=== PATIENT | male | born 1990 | race Two or more races ===

== ENCOUNTER 2022-08-20 15:38 | Inpatient (IN) | payer MEDICAID, OTHER ==
[~2022-08-20] VITALS: Ht 180.3 cm; Wt 78.0 kg
[2022-08-20 17:09] LABS: Basophils # (auto) 0.1 10 ^3/uL (0-0.2); Basophils % (auto) 0.7 % (0.0-2.0); Eosinophils # (auto) 0 10 ^3/uL (0-0.8); Eosinophils % (auto) 0.5 % (0.0-7.0); Hematocrit 43.5 % (41.0-53.0); Lymphocytes # (auto) 0.7 10 ^3/uL (0.4-5.4); Lymphocytes % (auto) 9.6 % (10.0-50.0); Mean Corpuscular Hemoglobin 32.7 pg (28.0-32.0); Mean Corpuscular Hgb Conc. 34.4 g/dL (32.0-36.0); Mean Corpuscular Volume 95.1 fL (80.0-100.0); Monocytes # (auto) 0.9 10 ^3/uL (0-1.3); Monocytes % (auto) 11.6 % (0.0-12.0); Neutrophils # (auto) 5.9 10 ^3/uL (1.6-8.6); Neutrophils % (auto) 77.6 % (37.0-80.0); Nucleated Red Blood Cells % 0.1 %; Red Blood Cells 4.57 10^6/uL (4.5-5.90); Red Cell Distribution Width 16.7 % (11.8-14.3); White Blood Cell 7.6 10^3/uL (4.4-10.8)
[2022-08-20 17:29] LABS: Albumin 3.3 g/dL (3.4-5.0); Calcium 8.6 mg/dL (8.5-10.1); Potassium 3.7 mmol/L (3.5-5.1)
[2022-08-20 17:32] LABS: Bilirubin, Total 8.2 mg/dL (0.2-1.0); Total Protein 9.1 g/dL (6.4-8.2)
[2022-08-20] MEDS ORDERED: levoFLOXacin 250 MG TAB PO ONE (18:45)
[2022-08-20] MEDS ORDERED: SODIUM CHLORIDE 0.9% 1,000 ML IV ONE (18:45)
[2022-08-20] MEDS ORDERED: metroNIDAZOLE 500MG/100ML 100 ML IV ONE (18:45)
[2022-08-20 19:24] LABS: Urine Bacteria NONE SEEN /hpf (None Seen); Urine Blood Negative /uL (Negative); Urine Mucus FEW (None Seen); Urine Specific Gravity 1.033 (1.001-1.035); Urine WBC <1 /hpf (0 - 3)
[2022-08-20] MEDS ORDERED: ONDANSETRON HCL 4 MG/2 ML VIAL IV PRN (21:45)
[2022-08-20] MEDS ORDERED: MORPHINE SULFATE INJ 2 MG/ml SYRG IV PRN (21:45)
[2022-08-20] MEDS ORDERED: chlordiazePOXIDE HCL 25 MG CAP PO PRN (21:45)
[2022-08-20] MEDS ORDERED: TEMAZEPAM 15 MG CAP PO PRN (21:45)
[2022-08-20 22:26] LABS: INR 1.62 (0.9-1.15); Partial Thromboplastin Time 41.6 sec (24.6-33.4)
[2022-08-21 05:19] LABS: Basophils # (auto) 0 10 ^3/uL (0-0.2); Basophils % (auto) 0.9 % (0.0-2.0); Eosinophils # (auto) 0 10 ^3/uL (0-0.8); Eosinophils % (auto) 0.8 % (0.0-7.0); Hematocrit 36.3 % (41.0-53.0); Hemoglobin 12.7 g/dL (13.5-17.5); Lymphocytes % (auto) 18.3 % (10.0-50.0); Mean Corpuscular Hgb Conc. 34.9 g/dL (32.0-36.0); Mean Corpuscular Volume 94.6 fL (80.0-100.0); Monocytes # (auto) 0.7 10 ^3/uL (0-1.3); Neutrophils # (auto) 3.8 10 ^3/uL (1.6-8.6); Nucleated Red Blood Cells % 0.1 %; Red Blood Cells 3.84 10^6/uL (4.5-5.90); Red Cell Distribution Width 16.4 % (11.8-14.3); White Blood Cell 5.6 10^3/uL (4.4-10.8)
[2022-08-21 05:36] LABS: Albumin 2.8 g/dL (3.4-5.0); Calcium 8.1 mg/dL (8.5-10.1); Potassium 3.5 mmol/L (3.5-5.1)
[2022-08-21 05:41] LABS: BUN/Creatinine Ratio 17.4; Bilirubin, Total 5.5 mg/dL (0.2-1.0); Total Protein 7.6 g/dL (6.4-8.2)
[2022-08-21] MEDS: metroNIDAZOLE 500MG/100ML 100 ML IV SCH ×3 (06:06→21:44)
[2022-08-21] MEDS: cefTRIAXone 1GM/50ML D5W 50 ML IV SCH (09:12)
[2022-08-21] MEDS: LACTULOSE 20Gm/30ML SOLN PO SCH (09:12)
[2022-08-21 12:00] LABS: Alcohol, Urine < 3.0 mg/dL (0-10); Amphetamine Screen, Urine NEGATIVE (NEGATIVE); Barbiturate Scree,Urine NEGATIVE (NEGATIVE); Benzodiazephine Screen, Urine NEGATIVE (NEGATIVE); Cannabinoid Screen, Urine NEGATIVE (NEGATIVE); Cocaine Screen, Urine POSITIVE (NEGATIVE); Opiate Scree,Urine NEGATIVE (NEGATIVE); Phencyclidine Screen, Urine NEGATIVE (NEGATIVE)
[2022-08-21] MEDS: FOLIC ACID 1 MG, MULTIPLE VITAMIN 10 ML, MAGNESIUM SULF SDV 50% 8 MEQ, THIAMINE INJ 100... INJ SCH ×5 (12:16)
[2022-08-21 17:40] VITALS: BP 138/87
[2022-08-21 20:00] VITALS: BP 129/49
[2022-08-21 22:00] VITALS: BP 129/69
[2022-08-22 05:00] VITALS: BP 123/72
[2022-08-22 05:06] LABS: Basophils # (auto) 0 10 ^3/uL (0-0.2); Basophils % (auto) 0.7 % (0.0-2.0); Eosinophils # (auto) 0 10 ^3/uL (0-0.8); Eosinophils % (auto) 1.1 % (0.0-7.0); Hematocrit 35.6 % (41.0-53.0); Hemoglobin 12.5 g/dL (13.5-17.5); Lymphocytes # (auto) 1.1 10 ^3/uL (0.4-5.4); Lymphocytes % (auto) 24.2 % (10.0-50.0); Mean Corpuscular Hemoglobin 33.3 pg (28.0-32.0); Mean Corpuscular Volume 95.1 fL (80.0-100.0); Monocytes # (auto) 0.5 10 ^3/uL (0-1.3); Neutrophils # (auto) 2.8 10 ^3/uL (1.6-8.6); Nucleated Red Blood Cells % 0.3 %; Red Blood Cells 3.74 10^6/uL (4.5-5.90); Red Cell Distribution Width 16.9 % (11.8-14.3); White Blood Cell 4.4 10^3/uL (4.4-10.8)
[2022-08-22 05:11] LABS: INR 1.42 (0.9-1.15)
[2022-08-22 05:26] LABS: Chloride 107 mmol/L (98-107); Potassium 3.6 mmol/L (3.5-5.1); Sodium 140 mmol/L (136-145)
[2022-08-22 05:33] LABS: Alanine Aminotransferase 47 U/L (16-61); Albumin 2.8 g/dL (3.4-5.0); Alkaline Phosphatase 104 U/L (45-117); Anion Gap 6 (5-15); Aspartate Aminotransferase 121 U/L (15-37); BUN/Creatinine Ratio 15.2; Bilirubin, Total 4.9 mg/dL (0.2-1.0); Blood Alcohol < 3.0 mg/dL (0-5); Blood Urea Nitrogen 10 mg/dL (7-18); Carbon Dioxide 27 mmol/L (21-32); GFR African American 181 mL/min; GFR Non-African American 150 mL/min; Glucose 86 mg/dL (74-106); Total Protein 7.2 g/dL (6.4-8.2)
[2022-08-22] MEDS: metroNIDAZOLE 500MG/100ML 100 ML IV SCH (06:13)
[2022-08-22 08:47] VITALS: BP 140/85
[2022-08-22] MEDS: cefTRIAXone 1GM/50ML D5W 50 ML IV SCH (09:00)
[2022-08-22] MEDS ORDERED: PANT40T PO (09:30)
[2022-08-22] MEDS ORDERED: LEVO500T31 PO (09:30)
[2022-08-22] MEDS ORDERED: CHL25C PO (09:30)
[2022-08-22] MEDS ORDERED: METR500T PO (09:30)
[2022-08-22] MEDS: LACTULOSE 20Gm/30ML SOLN PO SCH (09:50)
[2022-08-22] MEDS: FOLIC ACID 1 MG, MULTIPLE VITAMIN 10 ML, MAGNESIUM SULF SDV 50% 8 MEQ, THIAMINE INJ 100... INJ SCH ×5 (12:00)
== END 2022-08-22 13:40 | disposition home or self-care (01) | DRG 244 ==
LOC: ER 15:38 → OVERFLOW 21:38 → CENTRAL 08-21 17:02
PROVIDERS: ADMIT Nurse Practitioner; ATTEND Family Medicine
DX: K57.30 Diverticulosis of large intestine without perforation or abscess without bleeding (principal); D69.6 Thrombocytopenia, unspecified; K76.0 Fatty (change of) liver, not elsewhere classified; Z20.822 Contact with and (suspected) exposure to COVID-19; E86.0 Dehydration; F10.139 Alcohol abuse with withdrawal, unspecified; Y90.8 Blood alcohol level of 240 mg/100 ml or more; Z87.891 Personal history of nicotine dependence
CPT/HCPCS: 36415; 74176; 76705; 80053; 80307; 80320; 81001; 82140; 83690; 85025; 85610; 85730; 87426; 96365; 96366; 96367; 96368; G0378; J0696; J3490

== ENCOUNTER 2023-11-24 11:29 | Emergency (ER) | payer MEDICAID ==
[~2023-11-24] VITALS: Ht 180.3 cm; Wt 78.7 kg
[~2023-11-24 11:29] MED LIST: CHL25C PO; LEVO500T31 PO; METR500T PO; PANT40T PO
[2023-11-24 11:43] VITALS: BP 133/75; PULSE 95; RESP 19; O2SAT 96
== END 2023-11-24 13:25 | disposition left against medical advice (07) ==
LOC: ER 11:29
DX: R14.0 Abdominal distension (gaseous) (principal)